=== PATIENT | male | born 1990 | race Caucasian/White ===

== ENCOUNTER 2020-08-27 21:33 | Emergency (ER) | payer OTHER ==
[~2020-08-27] VITALS: Ht 182.9 cm; Wt 104.3 kg
[~2020-08-27 21:33] MED LIST: ALBU90OI INH; Amoxil400 MG/5 M PO; Bactrim Ds Tab1 EACH PO; CEPH500 PO; HYDACE5 PO; Keflex500 MG PO; NAPR500 PO; OXYACE5T PO; PRED10 PO; PROM25 PO; RXCEPH500 PO; SULTRIDS PO; TETR250; Ultram50 MG PO; Veetids 500500 MG PO; Vibramycin100 MG PO; Zofran Odt4 MG SL
[2020-08-27] MEDS ORDERED: Amoxicillin500 MG PO (21:36)
[2020-08-27] MEDS ORDERED: IBU800 MG PO (21:36)
== END 2020-08-27 21:46 | disposition home or self-care (01) ==
LOC: ER 21:33
DX: K02.9 Dental caries, unspecified (principal); F17.210 Nicotine dependence, cigarettes, uncomplicated; Z88.5 Allergy status to narcotic agent
CPT/HCPCS: 99282

== ENCOUNTER 2020-09-23 11:54 | Emergency (ER) | payer OTHER ==
[~2020-09-23] VITALS: Ht 185.4 cm; Wt 104.3 kg
[~2020-09-23 11:54] MED LIST changes: +Amoxicillin500 MG PO; +IBU800 MG PO
[2020-09-23 12:53] LABS: BASOPHILS ABSOLUTE AUTO 0.07 K/mm3 (0.00-0.23); BASOPHILS PERCENT AUTO 1 % (0-2); EOSINOPHILS ABSOLUTE AUTO 0.18 K/mm3 (0.00-0.68); EOSINOPHILS PERCENT AUTO 2 % (0-6); Hematocrit 44.3 % (37.0-53.0); IMMATURE GRAN ABSOLUTE AUTO 0.03 K/mm3 (0.00-0.10); IMMATURE GRAN PERCENT AUTO 0 % (0-1); LYMPHOCYTES ABSOLUTE AUTO 1.85 K/mm3 (0.84-5.20); LYMPHOCYTES PERCENT AUTO 16 % (21-46); MONOCYTES ABSOLUTE AUTO 0.78 K/mm3 (0.16-1.47); MONOCYTES PERCENT AUTO 7 % (4-13); Mean Corpuscular HGB 29.6 pg (26.0-34.0); Mean Corpuscular HGB Conc 33.9 g/dL (31.5-36.5); Mean Corpuscular Volume 88 fL (80-100); Mean Platelet Volume 12.1 fL (9.1-12.4); NEUTROPHILS ABSOLUTE AUTO 8.43 K/mm3 (1.96-9.15); NEUTROPHILS PERCENT AUTO 74 % (41-73); Platelet Count 237 K/mm3 (150-400); RDW Coefficient Variation 13.4 % (11.7-14.2); RDW Standard Deviation 42.8 fL (35.1-46.3); Red Blood Cell Count 5.06 M/mm3 (4.30-5.90); White Blood Cell Count 11.34 K/mm3 (4.00-11.30)
[2020-09-23 13:26] LABS: Alanine Aminotransfer (ALT/SGP 58 U/L (12-78); Albumin, Blood 3.9 g/dL (3.4-5.0); Albumin/Globulin Ratio 1.1 (0.8-1.8); Alk Phos 62 U/L (50-136); Anion Gap 7 mmol/L (6-16); Aspartate Aminotrans (AST/SGOT 30 U/L (12-37); Blood Urea Nitrogen 28 mg/dL (8-24); Bun/Creatinine Ratio 37.4 (12.0-20.0); CO2, Blood 25 mmol/L (21-32); Calcium, Blood 8.9 mg/dL (8.5-10.1); Chloride, Blood 108 mmol/L (98-108); Creatinine, Blood 0.75 mg/dL (0.60-1.20); Globulin, Blood 3.5 g/dL (2.2-4.0); Glomerular Filtration Rate >60 (60-); Glucose, Blood 110 mg/dL (70-99); Potassium, Blood 3.9 mmol/L (3.5-5.5); Sodium, Blood 140 mmol/L (136-145); Total Protein, Blood 7.4 g/dL (6.4-8.2)
== END 2020-09-23 15:44 | disposition left against medical advice (07) ==
LOC: ER 11:54
PROVIDERS: Physician Assistant
DX: R10.9 Unspecified abdominal pain (principal); Z53.21 Procedure and treatment not carried out due to patient leaving prior to being seen by health care provider
CPT/HCPCS: 36415; 80053; 83690; 85025; 99283

== ENCOUNTER 2023-07-25 15:03 | Inpatient (IN) | payer OTHER ==
[~2023-07-25] VITALS: Ht 182.9 cm; Wt 83.6 kg
[2023-07-25] VITALS (8 sets, daily range): BP systolic 116–142; BP diastolic 75–105
[2023-07-25 17:32] LABS: BASOPHILS ABSOLUTE AUTO 0.06 K/mm3 (0.00-0.23); BASOPHILS PERCENT AUTO 1 % (0-2); EOSINOPHILS ABSOLUTE AUTO 0.12 K/mm3 (0.00-0.68); EOSINOPHILS PERCENT AUTO 2 % (0-6); Hematocrit 36.1 % (37.0-53.0); Hemoglobin 13.1 g/dL (13.5-17.5); IMMATURE GRAN ABSOLUTE AUTO 0.02 K/mm3 (0.00-0.10); IMMATURE GRAN PERCENT AUTO 0 % (0-1); LYMPHOCYTES ABSOLUTE AUTO 1.25 K/mm3 (0.84-5.20); LYMPHOCYTES PERCENT AUTO 17 % (21-46); MONOCYTES ABSOLUTE AUTO 0.56 K/mm3 (0.16-1.47); MONOCYTES PERCENT AUTO 8 % (4-13); Mean Corpuscular HGB Conc 36.3 g/dL (31.5-36.5); Mean Corpuscular Volume 85 fL (80-100); Mean Platelet Volume 11.6 fL (9.1-12.4); NEUTROPHILS ABSOLUTE AUTO 5.47 K/mm3 (1.96-9.15); NEUTROPHILS PERCENT AUTO 73 % (41-73); Platelet Count 252 K/mm3 (150-400); RDW Standard Deviation 39.8 fL (35.1-46.3); Red Blood Cell Count 4.23 M/mm3 (4.30-5.90); White Blood Cell Count 7.48 K/mm3 (4.00-11.30)
[2023-07-25 18:08] LABS: Magnesium, Blood 2.2 mg/dL (1.6-2.4)
[2023-07-25 18:11] LABS: Albumin, Blood 3.5 g/dL (3.4-5.0); Bilirubin, Total 0.8 mg/dL (0.1-1.0); Bun/Creatinine Ratio 24.5 (12.0-20.0); Creatinine, Blood 0.57 mg/dL (0.60-1.20); Globulin, Blood 3.5 g/dL (2.2-4.0); Phosphorus, Blood 3.9 mg/dL (2.5-4.9); Potassium, Blood 5.1 mmol/L (3.5-5.5)
[2023-07-25 18:13] LABS: Source, Urine Clean Catch
[2023-07-25 18:17] LABS: Appearance, Urine Clear (Clear); Bilirubin, Urine Neg (Neg); Blood, Urine Neg (Neg); Glucose Qualitative, Urine 4+ (Neg); Ketones, Urine 3+ (Neg); Leukocyte Esterase, Urine Neg (Neg); Nitrite, Urine Neg (Neg); Protein, Urine Neg (Neg); Urobilinogen, Urine NORM (Normal)
--- NOTE | 2023-07-25 18:30 | NUR ---
ASSUMPTION OF CARE PT A DIRECT ADMIT FROM [place], CAME IN VIA PRIVATE AUTO. PT AMBULATES TO ROOM WITHOUT ASSISTANCE. PT ADMITTED FOR HYPERGLYCEMIA. PT A&OX4, FOLLOWING COMMANDS, JOSHI. CAME INTO HOSPITAL TODAY SECONDARY TO BLURRED VISION, INCREASED THIRST, AND GENERAL MALAISE. UPON ADMIT 2 IV'S ESTABLISHED, LABS DRAWN, URINE SPECIMEN COLLECTED, AND INSULIN GTT INIITATED AT 6U/HR FOR A GLUCOSE 1048. SINUS TACH ON THE MONITOR, BP STABLE. SATS >95% ON RA.
[2023-07-25 18:34] LABS: Color, Urine Pale Yellow (P-Yellow)
[2023-07-25 18:37] LABS: U Amphetamine Screen DETECTED; U Barbituate Screen Not Detected; U Benzodiazapine Screen Not Detected; U Buprenorphine Screen Not Detected; U Cannabinoids Screen Not Detected; U Cocaine Screen Not Detected; U Methadone Screen Not Detected; U Methamphetamine Screen DETECTED; U Opiates Screen Not Detected; U Oxycodone Screen Not Detected; U Phencyclidine Screen Not Detected; U Propoxyphene Screen Not Detected
[2023-07-25 19:30] LABS: Glucose, Blood 992 mg/dL (70-99)
[2023-07-25 21:37] LABS: Glucose, Blood 708 mg/dL (70-99)
[2023-07-25 21:37] LABS: Glucose, Blood 834 mg/dL (70-99)
--- NOTE | 2023-07-25 21:53 | NUR ---
ASSUMPTION OF CARE/ASSESSMENT: ASSUMED CARE OF PT AT 1900. PT A&O X 4, INDEPENDENT WITH ADL'S AND COOPERATIVE WITH CARE. PT CURRENTLY ON RA WITH SPO2 99<, CLEAR LUNG SOUNDS THROUGHOUT AND DENIES SOB. PT SR-ST ON MONITOR WITH HR 80-100'S, SBP 120'S, AND PT DENIES CHEST PAIN/PRESSURE. HYPOACTIVE BOWEL SOUNDS NOTED IN ALL QUADRANTS, ABD SOFT, NON-TENDER AND PT TOLERATING PO INTAKE. PT USING URINAL AND TOILET IN ROOM INDEPENDENTLY FOR ELIMINATION; URINE IT LIGHT YELLOW AND CLEAR. SKIN WARM, INTACT, AND PPP X 4. INSULIN GTT @ 5.5 UNITS/HR AND NS @ 200 MLS/HR. PT COMPLAINING OF TOOTH ACHE 6/10 PAIN; PROVIDER CALLED AND TYLENOL ORDERED AND GIVEN PER EMAR. BED LOWERED, CALL LIGHT IN REACH.
[2023-07-25 22:48] LABS: Glucose, Blood 568 mg/dL (70-99)
[2023-07-26] VITALS (10 sets, daily range): BP systolic 107–127; BP diastolic 68–84
[2023-07-26 00:12] LABS: Albumin/Globulin Ratio 0.9 (0.8-1.8); Bilirubin, Total 0.5 mg/dL (0.1-1.0); Bun/Creatinine Ratio 32.1 (12.0-20.0); Calcium, Blood 8.3 mg/dL (8.5-10.1); Creatinine, Blood 0.47 mg/dL (0.60-1.20); Globulin, Blood 3.3 g/dL (2.2-4.0); Total Protein, Blood 6.3 g/dL (6.4-8.2)
[2023-07-26 03:49] LABS: BASOPHILS ABSOLUTE AUTO 0.07 K/mm3 (0.00-0.23); BASOPHILS PERCENT AUTO 1 % (0-2); EOSINOPHILS ABSOLUTE AUTO 0.27 K/mm3 (0.00-0.68); EOSINOPHILS PERCENT AUTO 4 % (0-6); Hematocrit 36.7 % (37.0-53.0); Hemoglobin 13.3 g/dL (13.5-17.5); IMMATURE GRAN ABSOLUTE AUTO 0.03 K/mm3 (0.00-0.10); IMMATURE GRAN PERCENT AUTO 0 % (0-1); LYMPHOCYTES PERCENT AUTO 27 % (21-46); MONOCYTES ABSOLUTE AUTO 0.63 K/mm3 (0.16-1.47); MONOCYTES PERCENT AUTO 9 % (4-13); Mean Corpuscular HGB 30.6 pg (26.0-34.0); Mean Corpuscular HGB Conc 36.2 g/dL (31.5-36.5); Mean Corpuscular Volume 85 fL (80-100); Mean Platelet Volume 11.4 fL (9.1-12.4); NEUTROPHILS ABSOLUTE AUTO 4.36 K/mm3 (1.96-9.15); NEUTROPHILS PERCENT AUTO 59 % (41-73); Platelet Count 244 K/mm3 (150-400); RDW Coefficient Variation 12.5 % (11.7-14.2); RDW Standard Deviation 38.3 fL (35.1-46.3); Red Blood Cell Count 4.34 M/mm3 (4.30-5.90); White Blood Cell Count 7.36 K/mm3 (4.00-11.30)
[2023-07-26 04:26] LABS: Albumin, Blood 2.9 g/dL (3.4-5.0); Albumin/Globulin Ratio 0.9 (0.8-1.8); Bilirubin, Total 0.4 mg/dL (0.1-1.0); Bun/Creatinine Ratio 25.5 (12.0-20.0); Calcium, Blood 8.1 mg/dL (8.5-10.1); Creatinine, Blood 0.51 mg/dL (0.60-1.20); Globulin, Blood 3.2 g/dL (2.2-4.0); Potassium, Blood 3.4 mmol/L (3.5-5.5); Total Protein, Blood 6.1 g/dL (6.4-8.2)
--- NOTE | 2023-07-26 06:24 | NUR ---
SHIFT SUMMARY: NO ACUTE CHANGES THIS SHIFT; PT ABLE TO SLEEP FOR MAJORITY OF NIGHT, VSS THROUGHOUT THE NIGHT. PT REMAINS ON INSULIN GTT @ 2 UNITS/HR AND LAST CBG AT 194; NS @ 200 MLS/HR. PT HAD 2.5 L URINE OUTPUT AND BOWEL MOVEMENT THIS SHIFT. PT REMAINS INDEPENDENT WITH ALL ADL'S. BED LOWERED, CALL LIGHT IN REACH, WILL REPORT TO ONCOMING RN.
[2023-07-26 08:44] LABS: IMMATURE RETIC FRACTION 4.9 % (2.3-16.0); RETICULOCYTE ABSOLUTE 0.0783 M/mm3 (0.0200-0.1100); RETICULOCYTE COUNT PERCENT 1.86 % (0.50-2.50)
[2023-07-26 09:38] LABS: Percent Saturation 22.5 % (20.0-50.0)
--- NOTE | 2023-07-26 14:32 | NUR ---
LATE ENTRY/ICU TRANSFER 1355: RECEIVED REPORT FROM SERVICE OR WORK DISPATCHER CHIEF. 1410: RECEIVED PT FROM ICU VIA W/C WITH ALL PERSONAL BELONGINGS. PT'S 3 PKS OF CIGARETTES PLACED IN LOCK BOX, PT DENIES HAVING AN IGNITION SOURCE, STATES IT'S IN HIS CAR. PT REQUESTS TO GO OUTSIDE TO SMOKE. RN DENIED THE REQUEST WITH EXPLANATION TO WHY, PT AGREEABLE TO EXPLANATION. PT ORIENTED TO ROOM & UNIT ROUTINE. CALL LIGHT WITHIN REACH, BED IN LOW POSITION.
--- NOTE | 2023-07-26 18:17 | NUR ---
SHIFT SUMMARY PT A&O X 4. VSS, PLEASANT & COOPERATIVE WITH ALL CARE. INDEPENDENT IN THE ROOM FOR RESTROOM USE. SEEMS MOTIVATED TO LEARN & MANAGE HIS NEW DX OF DIABETES. RECEPTIVE TO TEACHING. HAS RESTED QUIETLY SINCE ARRIVING TO FLOOR FROM ICU, IS ABLE TO APPROPRIATELY MAKE HIS NEEDS KNOWN. BED IN LOW POSITION, CALL LIGHT WITHIN REACH. WHEN CLINICALLY APPROPRIATE PLAN IS HOME UPON DC.
[2023-07-27 01:56] VITALS: BP 106/69
--- NOTE | 2023-07-27 04:01 | NUR ---
END OF SHIFT SUMMARY PT SLEPT THE MAJORITY OF THE SHIFT OVERNIGHT. PT A&O x4. ADMITTED FOR HYPERGLYCEMIA. CBG READING ON NOC SHIFT WAS 313. ACCORDING TO THE eMAR, 2 UNITS OF HUMULIN WAS GIVEN FOR COVERAGE. PT DENIED ANY PAIN/DISCOMFORT. PT'S CALLED FOR AN UPDATE. MINIMAL INTERACTION WITH PT THIS SHIFT BUT PT WAS POLITE AND COOPERATIVE WITH CARE PROVIDED. PT ABLE TO MAKE NEEDS KNOWN. PT REQUESTED DIABETIC SNACK. ADEQUATE APPETITE. PT COMPLIANT OF CARE AND MEDICATIONS. PT EDUCATION PROVIDED BY NURSING STAFF REGARDING PLAN OF DISCHARGE AND S/SX OF HYPER AND HYPOGLYCEMIA. CALL LIGHT WITHIN REACH, WCTM.
[2023-07-27 07:10] VITALS: BP 120/83
[2023-07-27 08:05] LABS: BASOPHILS ABSOLUTE AUTO 0.05 K/mm3 (0.00-0.23); BASOPHILS PERCENT AUTO 1 % (0-2); EOSINOPHILS ABSOLUTE AUTO 0.19 K/mm3 (0.00-0.68); EOSINOPHILS PERCENT AUTO 3 % (0-6); Hematocrit 40.6 % (37.0-53.0); Hemoglobin 14.5 g/dL (13.5-17.5); IMMATURE GRAN ABSOLUTE AUTO 0.04 K/mm3 (0.00-0.10); IMMATURE GRAN PERCENT AUTO 1 % (0-1); LYMPHOCYTES ABSOLUTE AUTO 1.93 K/mm3 (0.84-5.20); LYMPHOCYTES PERCENT AUTO 28 % (21-46); MONOCYTES ABSOLUTE AUTO 0.46 K/mm3 (0.16-1.47); MONOCYTES PERCENT AUTO 7 % (4-13); Mean Corpuscular HGB 30.7 pg (26.0-34.0); Mean Corpuscular HGB Conc 35.7 g/dL (31.5-36.5); Mean Corpuscular Volume 86 fL (80-100); Mean Platelet Volume 11.7 fL (9.1-12.4); NEUTROPHILS ABSOLUTE AUTO 4.28 K/mm3 (1.96-9.15); NEUTROPHILS PERCENT AUTO 62 % (41-73); Platelet Count 261 K/mm3 (150-400); RDW Coefficient Variation 13.1 % (11.7-14.2); RDW Standard Deviation 40.1 fL (35.1-46.3); Red Blood Cell Count 4.73 M/mm3 (4.30-5.90); White Blood Cell Count 6.95 K/mm3 (4.00-11.30)
[2023-07-27 08:26] LABS: Bun/Creatinine Ratio 21.8 (12.0-20.0); Calcium, Blood 8.5 mg/dL (8.5-10.1); Creatinine, Blood 0.51 mg/dL (0.60-1.20); Potassium, Blood 3.8 mmol/L (3.5-5.5)
[2023-07-27] MEDS ORDERED: BASAGLAR K100 UNIT/1 SC (13:33)
[2023-07-27 14:09] LABS: C-PEPTIDE, SERUM 0.2 ng/mL (1.1-4.4)
--- NOTE | 2023-07-27 14:43 | NUR ---
DISCHARGE: PT D/C @2455 INDEPENDENTLY. INSULIN GLARGINE RX FAXED TO [facility]. DR. HERNANDEZ STATED HE WOULD CALL PHARMACY TO ORDER GLUCOMETER, TEST STRIPS, AND LANCETS. IV REMOVED FROM RIGHT AND LEFT FOREARM W/O COMPLICATIONS. PT GIVEN INSTRUCTIONS ON INSULIN ADMINISTRATION AND PRINTED OUT INSTRUCTIONS W/ DISCHARGE. ALL BELONGINGS SENT WITH PT.
== END 2023-07-27 14:10 | disposition home or self-care (01) | DRG 638 ==
LOC: ICUE 16:43 → MEDS 07-26 13:57
PROVIDERS: Internal Medicine; Nurse Practitioner Acute Care; ADMIT Internal Medicine
PROC: HZ2ZZZZ Detoxification Services for Substance Abuse Treatment (ICD-10-PCS; principal; 2023-07-25)
DX: E11.65 Type 2 diabetes mellitus with hyperglycemia (principal); R64 Cachexia; F19.10 Other psychoactive substance abuse, uncomplicated; D64.9 Anemia, unspecified; F15.10 Other stimulant abuse, uncomplicated; F10.90 Alcohol use, unspecified, uncomplicated; F17.200 Nicotine dependence, unspecified, uncomplicated; Z98.890 Other specified postprocedural states; Z71.6 Tobacco abuse counseling; Z68.25 Body mass index [BMI] 25.0-25.9, adult
CPT/HCPCS: 36415; 80048; 80053; 81003; 82607; 82728; 82746; 82947; 83036; 83540; 83550; 83735; 84100; 85025; 85045; A9270; J1650; J1815; J3411; J7030

== ENCOUNTER 2023-11-22 11:03 | Emergency (ER) | payer OTHER ==
[~2023-11-22] VITALS: Ht 180.3 cm; Wt 77.1 kg
[~2023-11-22 11:03] MED LIST changes: +BASAGLAR K100 UNIT/1 SC
[2023-11-22 11:20] VITALS: BP 164/93
== END 2023-11-22 11:52 | disposition left against medical advice (07) ==
LOC: ER 11:03
DX: M54.50 Low back pain, unspecified (principal); R10.30 Lower abdominal pain, unspecified; E10.65 Type 1 diabetes mellitus with hyperglycemia; Z87.19 Personal history of other diseases of the digestive system; F17.210 Nicotine dependence, cigarettes, uncomplicated
CPT/HCPCS: 99284